=== PATIENT | female | born 1960 | race Caucasian/White ===

== ENCOUNTER 2016-11-19 11:15 | Outpatient (CLI) | payer MEDICARE, MEDICAID | END 2016-11-19 11:16 | disposition home or self-care (01) | DX: G47.33 Obstructive sleep apnea (adult) (pediatric) (principal) | CPT/HCPCS: 99214; G0463 ==

== ENCOUNTER 2016-12-10 19:01 | Outpatient (CLI) | payer MEDICARE, MEDICAID | END 2016-12-10 19:02 | disposition home or self-care (01) | DX: G47.33 Obstructive sleep apnea (adult) (pediatric) (principal); Z68.29 Body mass index [BMI] 29.0-29.9, adult ==

== ENCOUNTER 2016-12-25 13:00 | Outpatient (CLI) | payer MEDICARE, MEDICAID | END 2016-12-25 13:01 | disposition home or self-care (01) | DX: G47.33 Obstructive sleep apnea (adult) (pediatric) (principal) | CPT/HCPCS: 99213; G0463 ==

== ENCOUNTER 2017-01-10 12:00 | Outpatient (CLI) | payer MEDICARE, MEDICAID | END 2017-01-10 12:01 | disposition home or self-care (01) | DX: E11.9 Type 2 diabetes mellitus without complications (principal); E55.9 Vitamin D deficiency, unspecified; I10 Essential (primary) hypertension; E78.5 Hyperlipidemia, unspecified ==

== ENCOUNTER 2017-01-28 14:12 | Outpatient (CLI) | payer MEDICARE, MEDICAID | END 2017-01-28 14:13 | disposition home or self-care (01) | DX: G47.33 Obstructive sleep apnea (adult) (pediatric) (principal) | CPT/HCPCS: 99213; G0463 ==

== ENCOUNTER 2021-05-31 12:44 | Outpatient (CLI) | payer MEDICAID, MEDICARE ==
--- NOTE | 2021-05-31 14:20 | XRAY Report ---
PROCEDURE: Chest 2 View X-Ray INDICATIONS: Cough, shortness of breath TECHNIQUE: 2 view(s) of the chest. COMPARISON: 01/27/2016. FINDINGS: Surgical changes and devices: None. Lungs and pleura: No pleural effusions or pneumothorax. Lungs are clear. Mediastinum: Mediastinal contours are normal. Heart size is normal. Bones and chest wall: No suspicious bony abnormalities. Soft tissues appear unremarkable. IMPRESSION: No acute cardiopulmonary process demonstrated radiographically. Reviewed by: Shai Vines MD on 05/31/2021 2:19 PM PDT Approved by: Shai Vines MD on 05/31/2021 2:19 PM PDT Station ID: [id number]
== END 2021-05-31 12:45 | disposition home or self-care (01) ==
LOC: DI.N 12:44
PROVIDERS: ATTEND Physician Assistant
DX: R05 Cough (principal); R06.2 Wheezing; J44.9 Chronic obstructive pulmonary disease, unspecified

== ENCOUNTER 2021-10-10 20:11 | Emergency (ER) | payer MEDICARE ==
[2021-10-10 20:56] LABS: BASOPHILS # (AUTO) 0.1 10^3/uL (0.0-0.1); BASOPHILS % (AUTO) 0.7 %; EOSINOPHILS # (AUTO) 0.3 10^3/uL (0.0-0.7); EOSINOPHILS % (AUTO) 3.9 %; HGB - HEMOGLOBIN 13.6 g/dL (12.0-16.0); LYMPHOCYTES # (AUTO) 3.4 10^3/uL (1.5-3.5); LYMPHOCYTES % (AUTO) 40.4 %; MEAN CORPUSCULAR HEMOGLOBIN 30.7 pg (27.0-31.0); MEAN CORPUSCULAR VOLUME 90.3 fL (81.0-99.0); MEAN PLATELET VOLUME 10.5 fL (7.9-10.8); MONOCYTES # (AUTO) 0.5 10^3/uL (0.0-1.0); MONOCYTES % (AUTO) 5.4 %; NEUTROPHILS # (AUTO) 4.1 10^3/uL (1.5-6.6); NEUTROPHILS % (AUTO) 49.2 %; PLT - PLATELET COUNT 170 10^3/uL (130-450); RED BLOOD COUNT 4.43 10^6/uL (4.20-5.40); RED CELL DISTRIBUTION WIDTH 12.4 % (12.0-15.0); WHITE BLOOD COUNT 8.4 x10^3/uL (4.8-10.8)
--- NOTE | 2021-10-10 21:03 | XRAY Report ---
PROCEDURE: Chest 1 View X-Ray INDICATIONS: Chest pain TECHNIQUE: One view of the chest was acquired. COMPARISON: Chest x-ray 2 views, 05/31/2021. FINDINGS: Surgical changes and devices: None. Lungs and pleura: No pleural effusions or pneumothorax. Lungs are clear. Mediastinum: Mediastinal contours appear normal. Heart size is normal. Bones and chest wall: No suspicious bony lesions. Overlying soft tissues appear unremarkable. IMPRESSION: No acute cardiopulmonary disease. Reviewed by: Thalia Tejada MD on 10/10/2021 9:02 PM PST Approved by: Thalia Tejada MD on 10/10/2021 9:02 PM PST Station ID: [id number]
[2021-10-10 21:10] LABS: ALBUMIN 4.1 g/dL (3.2-5.5); ALBUMIN/GLOBULIN RATIO 1.5 (1.0-2.2); BILIRUBIN,TOTAL 0.7 mg/dL (0.2-1.0); CALCIUM 9.4 mg/dL (8.5-10.3); CREATININE 0.6 mg/dL (0.4-1.0); TOTAL PROTEIN 6.8 g/dL (6.7-8.2)
--- NOTE | 2021-10-10 21:11 | ED Physician Documentation ---
History of Present Illness - Stated complaint Stated Complaint: HIGH BLOOD PRESSURE - Chief complaint Chief Complaint: Cardiac - History obtained from History obtained from: Patient - History of Present Illness Timing: Today Pain level now: 2 (generalized headache) - Additonal information Additional information: c/o high blood pressures on BP cuff at home, highest reading was 210/103. She also notes increase frequency of her PACs. She takes atenolol 50mg QHS to decrease PAC frequency. Review of Systems Cardiac: reports: Palpitations. denies: Chest pain / pressure, Pedal edema Respiratory: reports: Reviewed and negative GI: reports: Reviewed and negative PD PAST MEDICAL HISTORY - Past Medical History Cardiovascular: High cholesterol, Arrhythmia Musculoskeletal: Fibromyalgia - Past Surgical History Past Surgical History: Yes General: Appendectomy /LIBRARY INFORMATION TECHNICIAN: Tubal ligation - Present Medications Home Medications: Ambulatory Orders Medication Instructions Recorded Confirmed Alprazolam [Xanax] 0.25 mg PO HS 05/16/13 10/11/21 Atorvastatin Calcium [Lipitor] 20 mg PO HS 05/16/13 10/11/21 Morphine Ir [Morphine] 0 mg PO BID 05/16/13 10/11/21 Omeprazole [PriLOSEC] 0 mg PO DAILY 05/16/13 10/11/21 Pregabalin [Lyrica] 300 mg PO HS 05/16/13 10/11/21 atenoloL [Atenolol] 50 mg PO DAILY 05/16/13 10/11/21 traMADol [Ultram] 0 mg PO BID 05/16/13 10/11/21 Hydrocodone/Acetaminophen [Vicodin 10 - 325 mg PO TID 04/03/14 10/11/21 5-300 mg Tablet] Amitriptyline [Elavil] 1 tab PO DAILY 11/19/15 10/11/21 metFORMIN [Glucophage] 500 mg PO BID 11/19/15 10/11/21 methocarbamoL [Methocarbamol] 1 tab PO TID 11/19/15 10/11/21 Duloxetine HCl [Cymbalta] 60 mg PO DAILY 08/16/21 10/11/21 Oxycodone HCl/Acetaminophen 2 tab PO Q4H PRN 08/16/21 10/11/21 [Percocet 5-325 mg Tablet] diazePAM [Valium] 0 mg PO TID PRN 08/16/21 10/11/21 predniSONE [Prednisone] 0 mg PO DAILY 08/16/21 10/11/21 lisinopriL [Lisinopril] 10 mg PO DAILY #30 tablet 10/10/21 10/11/21 - Allergies Allergies/Adverse Reactions: Allergies Allergy/AdvReac Type Severity Reaction Status Date / Time erythromycin base Allergy unknown Verified 10/10/21 20:20 [Erythromycin Base] ibuprofen [From Motrin] Allergy "my Verified 10/10/21 20:20 stomach won't take it" Sulfa (Sulfonamide Allergy unknown Verified 10/10/21 20:20 Antibiotics) - Social History Does the pt smoke?: Yes Smoking Status: Current every day smoker Does the pt drink ETOH?: No Does the pt have substance abuse?: No - Immunizations Immunizations: TDAP >10years/unknown - POLST Patient has POLST: No PD ED PE NORMAL - Vitals Vital signs reviewed: Yes - General General: Alert and oriented X 3, No acute distress, Well developed/nourished - HEENT HEENT: PERRL, EOMI - Cardiac Cardiac: RRR (occasional extra beat (correlates with PAC on monitor)), No murmur, No gallop, No rub - Respiratory Respiratory: No respiratory distress, Clear bilaterally - Abdomen Abdomen: Soft, Non tender - Neuro Neuro: Alert and oriented X 3 Results - Vitals Vitals: Oxygen O2 Source Room air - EKG (time done) No standard instances Rate: Rate (enter#) (71) Rhythm: NSR [place]: Normal Intervals: Normal GA QRS: Normal Ischemia: Normal ST segments - Labs Labs: Laboratory Tests 10/10/21 10/10/21 10/10/21 20:50 20:50 20:50 WBC 8.4 RBC 4.43 Hgb 13.6 Hct 40.0 MCV 90.3 MCH 30.7 MCHC 34.0 RDW 12.4 Plt Count 170 MPV 10.5 Neut # (Auto) 4.1 Lymph # (Auto) 3.4 [place] # (Auto) 0.5 Eos # (Auto) 0.3 Baso # (Auto) 0.1 Absolute Nucleated RBC 0.00 Nucleated RBC % 0.0 Sodium 140 Potassium 4.0 Chloride 104 Carbon Dioxide 24 Anion Gap 12.0 BUN 15 Creatinine 0.6 Estimated GFR (MDRD) 102 Glucose 91 Calcium 9.4 Total Bilirubin 0.7 AST 22 ALT 27 Alkaline Phosphatase 58 Troponin I High Sens 3.2 Total Protein 6.8 Albumin 4.1 Globulin 2.7 Albumin/Globulin Ratio 1.5 Lipase 37 PD MEDICAL DECISION MAKING - ED course Complexity details: reviewed results, re-evaluated patient, considered differential, d/w patient ED course: c/o high blood pressure without apparent cause (no missed medication doses, no memorable changes in diet nor stressors). She also c/o mild bifrontal headache. She denies chest pain but says she has some nondescript sensation (per patient) upper anterior midline chest. Cardiac-oriented workup is unremarkable, including CXR, EKG, and blood tests that included high-sensitivity troponin. She has moderately high blood pressure readings in ED. She is given 10mg PO lisinopril in ED and rx for same is transmitted to her pharmacy Departure - Departure Disposition: Home, Self Care Clinical Impression: Hypertension Qualifiers: Hypertension type: primary hypertension Qualified Code(s): I10 - Essential (primary) hypertension Condition: Good Instructions: ED Hypertension Conf Out Of Control Follow-Up: NARENDRA SCHULTE PA-C [Primary Care Provider] - Within 1 week Prescriptions: lisinopriL [Lisinopril] 10 mg PO DAILY #30 tablet Comments: A prescription for lisinopril has been electronically submitted to [facility] in [place] Discharge Date/Time: 10/10/21 21:56
[2021-10-10] MEDS ORDERED: lisinopriL 5 MG TABLET PO STA (21:46)
[2021-10-10 21:58] VITALS: BP 178/80
== END 2021-10-10 21:56 | disposition home or self-care (01) ==
LOC: ED 20:11
DX: I10 Essential (primary) hypertension (principal); R51.9 Headache, unspecified; I49.1 Atrial premature depolarization; F17.200 Nicotine dependence, unspecified, uncomplicated
CPT/HCPCS: 36415; 71045; 80053; 83690; 84484; 85025; 93005; 99284; A9270

== ENCOUNTER 2022-01-09 10:01 | Outpatient (CLI) | payer MEDICARE ==
--- NOTE | 2022-01-09 14:35 | Ultrasound Report ---
PROCEDURE: Abdomen Limited INDICATIONS: LIVER CIRRHOSIS TECHNIQUE: Real-time scanning was performed of the abdominal and retroperitoneal organs, with image documentatio n. COMPARISON: None. FINDINGS: Liver: Liver is is enlarged measuring 17.0 cm with steatosis. No focal lesion. Gallbladder: Gallbladder has been removed. Biliary ducts: Intrahepatic bile ducts are non-dilated. Extrahepatic bile duct caliber measures 9.1 mm. Normal is 6-7 mm or less in diameter, or 10 mm or less post-cholecystectomy. Pancreas: Visualized portions of the pancreas are sonographically normal. Kidneys: Right kidney measures 11.7 cm long. No hydronephrosis or nephrolithiasis. No solid masses . IMPRESSION: Hepatomegaly with steatosis. No focal lesion. Reviewed by: Alicja Peng MD on 01/09/2022 2:34 PM PDT Approved by: Alicja Peng MD on 01/09/2022 2:34 PM PDT Station ID: [id number]
== END 2022-01-09 10:02 | disposition home or self-care (01) ==
LOC: DI 10:01
PROVIDERS: ATTEND Physician Assistant
DX: K76.0 Fatty (change of) liver, not elsewhere classified (principal); R16.0 Hepatomegaly, not elsewhere classified

== ENCOUNTER 2022-03-13 11:21 | Outpatient (CLI) | payer MEDICARE ==
--- NOTE | 2022-03-14 13:40 | Mammography Report ---
BILATERAL DIGITAL SCREENING MAMMOGRAM 3D/2D: 03/13/2022 CLINICAL: Routine screening. Comparison is made to exams dated: 06/18/2016 mammogram, 03/19/2014 mammogram, and 09/22/2012 mammogra m - [facility]. There are scattered fibroglandular elements in both breasts. No significant masses, calcifications, or other findings are seen in either breast. There has been no significant interval change. IMPRESSION: NEGATIVE There is no mammographic evidence of malignancy. A 1 year screening mammogram is recommended. This exam was interpreted at Station ID: [id number]. NOTE: For mammograms, a report in lay terms will be sent to the patient. Approximately 15% of breast malignancies will not be visualized mammographically. In the management of a palpable breast mass, a negative mammogram must not discourage biopsy of a clinically suspicious lesion. Electronically Signed By: Adrianna welsh/deepthi:03/13/2022 17:52:08 ACR BI-RADS Category 1: Negative 3341F PARENCHYMAL PATTERN: (A) - The breast(s) demonstrate(s) scattered fibroglandular densities. BI-RADS CATEGORY: (1) - 1 RECOMMENDATION: (ANNUAL) - Recommend routine annual screening mammography. [id number] 1 year screening LATERALITY: (B)
== END 2022-03-13 11:22 | disposition home or self-care (01) ==
LOC: DI.N 11:21
PROVIDERS: ATTEND Physician Assistant
DX: Z12.31 Encounter for screening mammogram for malignant neoplasm of breast (principal)

== ENCOUNTER 2022-07-17 12:22 | Outpatient (CLI) | payer MEDICARE | END 2022-07-17 12:23 | disposition home or self-care (01) | LOC: SC 12:22 | PROVIDERS: ATTEND Internal Medicine Pulmonary Disease | DX: G47.33 Obstructive sleep apnea (adult) (pediatric) (principal); R09.02 Hypoxemia | CPT/HCPCS: G0399 ×2; 95806 ==

== ENCOUNTER 2022-08-02 15:43 | Outpatient (CLI) | payer MEDICARE ==
[2022-08-02 16:19] VITALS: BP 130/70
--- NOTE | 2022-08-02 16:19 | SLEEP CARE CONSULTATION ---
Information from patient questionnaire entered by Arielle Leal MA. I have reviewed and concur with the information entered by Arielle Leal MA. This document represents the service I personally performed and the decisions made by me, Dana Oconnor ARNP. History of Present Illness Service Date and Time: 08/02/2022 1543 Initial [place] Sleepiness Scale score: 14 (06/04/2022) Current [place] Sleepiness Scale score: 11 Additional HPI information: LUC FRAGA returns for follow up and results of the recently performed home sleep study. I explained the pathophysiology behind obstructive sleep apnea. We then spent quite a bit of time discussing different treatment options. For mild obstructive sleep apnea, surgery and oral appliance are alternatives to nasal CPAP therapy but in moderate or severe cases, nasal CPAP is the most effective and reliable treatment. I reviewed the impact of weight changes on sleep apnea and strongly recommended losing weight. After some discussion, the patient would like to have a referral to be evaluated for Inspire implant therapy. Patient has been on a CPAP in the past and states she could not find a mask that would seal and not leak into her eyes. She has not used her CPAP for a long time but she does have one that is probably 5 to 6 years old. Patient also asked about seeing different styles of masks and I showed those that we have in the office. She states she had to have a fullface mask. She did like the looks of the hybrid fullface masks. I had a Angelia [employer] example available in the office that I could fit her with, she felt it was comfortable and she will try this at home. Patient states she will set up and try to use the CPAP while she is going through the referral process for the Inspire implant therapy. Patient was cautioned about risks of drowsy driving until sleepiness symptoms resolve. Sleep Study - Results Prior sleep studies: Yes Polysomnography/Home Sleep Study results: Physician Impression: The quality of the study is good. The length of the study is adequate (> 240 minutes). Please also see the tabulated and graphic data. 1. Obstructive Sleep Apnea-Hypopnea (ICD-10 G47.33), moderate, with an AHI of 25.5/hr and nguyen SaO2 of 77%. During the study, the patient had 117 apneas (117 obstructive, 0 central, 0 mixed) and 69 hypopneas. The longest episode lasted 66.0 seconds. The patient did not sleep supine during this study. 2. Hypoxemia (ICD-10 R09.02), moderate, with the lowest oxygen saturation of 77 % and 15.6 minutes with SaO2 under 90%. Baseline oxygen saturation was normal (Average oxygen saturation was 92%). Allergies and Home Medications Drug allergies reviewed: Yes (as listed) Home medication list reviewed: Yes (no changes) Allergy and home medication list: Allergies erythromycin base [Erythromycin Base] Allergy (Verified 10/10/21 20:20) unknown ibuprofen [From Motrin] Allergy (Verified 10/10/21 20:20) "my stomach won't take it" Sulfa (Sulfonamide Antibiotics) Allergy (Verified 10/10/21 20:20) unknown Review of Systems Review of systems same as previous: Yes (no changes) Physical Exam Vital signs obtained and entered by: NICOLE AMOS Blood Pressure: 130/70 (left arm) Cuff size: regular Heart Rate: 64 O2 Saturation: 97 Height: 5 ft 4 in Weight: 174 lb 12.8 oz Body Mass Index: 29.9 BMI Classification: Overweight Impression and Plan 1. Obstructive Sleep Apnea-Hypopnea Syndrome, moderate, with lowest oxygen saturation of 77%. Obviously this is the cause of the patients symptoms of unrefreshed sleep, and excessive daytime sleepiness. Positive pressure therapy could benefit diabetes, fibromyalgia, anxiety and asthma. As mentioned above, the patient will restart using her CPAP at home with autoCPAP therapy pressure set at 10-15 cmH2O. Compliance guidelines also reviewed. A copy of compliance guidelines will be given for reference at check out. Patient also requesting a referral for evaluation for inspire implant therapy. A referral will be made and their office will be calling her to make that appointment. I would like to follow-up with her in about a month after she has been using her machine to see how she is doing and adjust pressure if needed. 2. Hypoxemia, moderate, with the lowest oxygen saturation of 77 % and 15.6 minutes with SaO2 under 90%. Her baseline oxygen saturation was normal with an average oxygen saturation of 92%. * Restart Nasal auto CPAP therapy, pressure to continue at 10-15 cm H2O. * Referral for ENT Inspire therapy evaluation * Attempt to lose weight. * Avoid alcohol consumption near bedtime. * The patient is again cautioned about driving until sleepiness completely resolves. * Return in one month for follow up. I will assess response to therapy and compliance at that time. Counseling Topics: Weight loss health impact Visit Type: In Office Time Spent with Patient (minutes): 28 Provider Statement: I spent 100% of the Face to Face Visit with the patient with greater than 50% spent counseling the patient and coordination of care.
== END 2022-08-02 15:44 | disposition home or self-care (01) ==
LOC: SC 15:43
PROVIDERS: ATTEND Nurse Practitioner Family
DX: G47.33 Obstructive sleep apnea (adult) (pediatric) (principal); R09.02 Hypoxemia; E66.3 Overweight; Z68.29 Body mass index [BMI] 29.0-29.9, adult
CPT/HCPCS: 99213; G0463; 99212

== ENCOUNTER 2022-08-08 16:35 | Outpatient (CLI) | payer MEDICARE ==
--- NOTE | 2022-08-09 14:25 | XRAY Report ---
PROCEDURE: Hand 3 View BILAT INDICATIONS: BILATERAL HAND PAIN, BILATERAL FOOT PAIN TECHNIQUE: 3 views of the hand(s) acquired. COMPARISON: Bilateral wrist radiographs also performed today. FINDINGS: Bones: No fractures or dislocations. Minimal interphalangeal joint space narrowing and small osteoph ytes. No suspicious bony lesions. Soft tissues: No suspicious soft tissue calcifications. IMPRESSION: Mild degenerative changes appreciated. Reviewed by: Ryan Aguilar MD on 08/09/2022 2:24 PM PDT Approved by: Ryan Aguilar MD on 08/09/2022 2:24 PM PDT Station ID: [id number]
--- NOTE | 2022-08-09 14:26 | XRAY Report ---
PROCEDURE: Wrist 4 View BILAT INDICATIONS: BILATERAL HAND PAIN, BILATERAL FOOT PAIN TECHNIQUE: 3 views of the wrist were acquired. COMPARISON: Same day bilateral hand radiographs. FINDINGS: Bones: No fractures or dislocations. Mild degenerative change. No suspicious bony lesions. Scaphoid view: Intact. Soft tissues: No suspicious soft tissue calcifications. IMPRESSION: Mild degenerative change appreciated. Reviewed by: Ryan Aguilar MD on 08/09/2022 2:25 PM PDT Approved by: Ryan Aguilar MD on 08/09/2022 2:25 PM PDT Station ID: [id number]
--- NOTE | 2022-08-09 16:52 | XRAY Report ---
PROCEDURE: Foot 3 View BILAT INDICATIONS: BILATERAL HAND PAIN, BILATERAL FOOT PAIN TECHNIQUE: 3 views of the foot were acquired. COMPARISON: None FINDINGS: Bones: No fractures or dislocations. Mild to moderate osteoarthritic changes are noted throughout bi lateral midfoot and forefoot joints with joint space narrowing, subchondral sclerosis and small yvonne nal osteophyte formation. No fracture or dislocation. No gross bony erosive changes. No suspicious [place] lesions. Soft tissues: No tibiotalar joint effusion. Achilles tendon appears normal. IMPRESSION: [id number] bilateral midfoot and forefoot joint osteoarthritis. No fracture or dislocation. No bony erosive changes or gross soft tissue abnormalities. Reviewed by: Lewis Fleming MD on 08/09/2022 4:50 PM PDT Approved by: Lewis Fleming MD on 08/09/2022 4:50 PM PDT Station ID: [id number]
== END 2022-08-08 16:36 | disposition home or self-care (01) ==
LOC: DI.N 16:35
PROVIDERS: ATTEND Physician Assistant
DX: M19.071 Primary osteoarthritis, right ankle and foot (principal); M19.072 Primary osteoarthritis, left ankle and foot; M19.041 Primary osteoarthritis, right hand; M19.042 Primary osteoarthritis, left hand; M19.031 Primary osteoarthritis, right wrist; M19.032 Primary osteoarthritis, left wrist

== ENCOUNTER 2022-08-18 16:43 | Outpatient (CLI) | payer MEDICARE | END 2022-08-18 23:59 | disposition home or self-care (01) | LOC: LAB.N 16:43 | PROVIDERS: ATTEND Registered Nurse | DX: R06.2 Wheezing (principal) | CPT/HCPCS: 87275; 87276 ==

== ENCOUNTER 2022-08-21 12:26 | Outpatient (CLI) | payer MEDICARE ==
--- NOTE | 2022-08-21 14:38 | XRAY Report ---
PROCEDURE: Chest 2 View X-Ray INDICATIONS: WHEEZING, PNEUMONIA TECHNIQUE: 2 views of the chest were obtained. COMPARISON: Chest x-ray 08/10/2021 FINDINGS: Cardiac mediastinal silhouette is normal in size and contour. No effusions, consolidations or pneumot horax. Osseous and soft tissue structures are unremarkable. IMPRESSION: No acute pulmonary process. Reviewed by: Alicja Peng MD on 08/21/2022 2:37 PM PDT Approved by: Alicja Peng MD on 08/21/2022 2:37 PM PDT Station ID: [id number]
== END 2022-08-21 12:27 | disposition home or self-care (01) ==
LOC: DI.N 12:26
PROVIDERS: ATTEND Registered Nurse
DX: J18.9 Pneumonia, unspecified organism (principal); R61 Generalized hyperhidrosis; R06.2 Wheezing; F17.210 Nicotine dependence, cigarettes, uncomplicated

== ENCOUNTER 2022-09-13 15:47 | Outpatient (CLI) | payer MEDICARE ==
[2022-09-13 16:26] VITALS: BP 110/62
--- NOTE | 2022-09-13 16:26 | SLEEP CARE CONSULTATION ---
Information from patient questionnaire entered by Minda Jonas. I have reviewed and concur with the information entered by Minda Jonas. This document represents the service I personally performed and the decisions made by me, Dana Oconnor ARNP. History of Present Illness Service Date and Time: 09/13/2022 1547 Previous diagnosis: Moderate, Obstructive Sleep Apnea-Hypopnea Syndrome AHI: 25.5 (in 2021) Reason for follow up: one month (F/U) Equipment type: CPAP Mask style: Full face Mask brand: Respironics (Dreamwear) Backup mask available: Yes (other mask) Prior sleep studies: Yes HPI additional information: LUC FRAGA was diagnosed to have moderate, AHI 25.5, obstructive sleep apnea- hypopnea syndrome and returned today for CPAP therapy one month follow-up. Sleep Study - Results Prior sleep studies: Yes CPAP Compliance Data Compliance data discussion: She has not used her CPAP due to mask leaking into face. She liked the feel of the Dreamwear full face mask but after 30 minutes she could not stand the air leaking. Subjective Missed days of use due to: reports: mask issues Patient concerns: reports: mask discomfort, air blowing in eyes, mask leak noise. denies: aerophagia, condensation in mask/hose, nasal congestion, dry mouth, nose, throat, epistaxis Current pressure setting perceived as: comfortable Initial [place] Sleepiness Scale score: 14 (06/04/2022) Current [place] Sleepiness Scale score: 13 (09/13/2022) Allergies and Home Medications Drug allergies reviewed: Yes (as listed in EMR) Home medication list reviewed: Yes (no changes) Review of Systems Review of systems same as previous: Yes (no changes) Physical Exam Vital signs obtained and entered by: MINDA Cummings MA Blood Pressure: 110/62 (LEFT ARM) Cuff size: regular Heart Rate: 64 O2 Saturation: 98 Height: 5 ft 4 in Weight: 173 lb 12.8 oz Body Mass Index: 29.8 BMI Classification: Overweight Impression and Plan 1. Obstructive Sleep Apnea-Hypopnea Syndrome, moderate, with poor treatment compliance and unknown apnea control. Patient states that she tried the full face mask (Dreamwear) that she was given here at the clinic but after 30 minutes she was not able to tolerate the air blowing in her face. She has not used her CPAP since that time. After some discussion, I fitted her with a [employer] Dreamwear nasal cushion mask and advised that she use mouth/sleep strips to keep mouth closed. She has tried a chin strap in the past but this did not work for her. She stated that she is willing to try this combination. If this does not work may try the Sleep Chao cloth mask. She will make a follow up in 1-2 months to see how she is doing. Patient's apnea severity and rationale for treatment to reduce apnea, improve sleep quality and reduce cardiovascular and cerebrovascular events was reviewed. I also reviewed the benefit of consistent device use of CPAP for diabetes, anxiety, fibromyalgia and asthma. 2. Overweight unspecified. Currently patients BMI is 29.8. Obesity increases the risk of apnea, CPAP pressure requirements and overall health risks especially cardiovascular and diabetes. Thus patient is advised to lose weight. * Continue auto CPAP pressure at 10-15 cmH2O * Angelia Dreamwear nasal pillows sample given to try with mouth strips to keep mouth closed * Notify me if snoring with mask or feeling that the pressure is too much or too little * Attempt to lose weight * Call this office if any problems using CPAP * Return for follow up in 1-2 months, or sooner if concerns arise Mask provided: Yes Counseling Topics: Weight loss health impact Visit Type: In Office Time Spent with Patient (minutes): 24 Provider Statement: I spent 100% of the Face to Face Visit with the patient with greater than 50% spent counseling the patient and coordination of care.
== END 2022-09-13 15:48 | disposition home or self-care (01) ==
LOC: SC 15:47
PROVIDERS: ATTEND Nurse Practitioner Family
DX: G47.33 Obstructive sleep apnea (adult) (pediatric) (principal); E66.3 Overweight; Z68.29 Body mass index [BMI] 29.0-29.9, adult
CPT/HCPCS: 99213; G0463; 99212

== ENCOUNTER 2023-01-22 13:56 | Outpatient (CLI) | payer MEDICARE ==
--- NOTE | 2023-01-22 14:33 | XRAY Report ---
PROCEDURE: Chest 2 View X-Ray INDICATIONS: COUGH; NICTOINE DEPENDENCE TECHNIQUE: 2 views of the chest were acquired. COMPARISON: Chest xray 08/21/2022 FINDINGS: Surgical changes and devices: None. Lungs and pleura: No pleural effusions or pneumothorax. Lungs are clear. Mediastinum: Mediastinal contours are normal. Heart size is normal. Bones and chest wall: No suspicious bony abnormalities. Soft tissues appear unremarkable. IMPRESSION: No acute pulmonary process. Reviewed by: Alicja Peng MD on 01/22/2023 2:32 PM PDT Approved by: Alicja Peng MD on 01/22/2023 2:32 PM PDT Station ID: [id number]
== END 2023-01-22 13:57 | disposition home or self-care (01) ==
LOC: DI 13:56
PROVIDERS: ATTEND Physician Assistant
DX: R05.9 Cough, unspecified (principal); F17.200 Nicotine dependence, unspecified, uncomplicated

== ENCOUNTER 2023-02-06 13:26 | Outpatient (CLI) | payer MEDICARE ==
[2023-02-06] MEDS ORDERED: ALBUTEROL 1 PUFF INH STA (17:20)
== END 2023-02-06 13:27 | disposition home or self-care (01) ==
LOC: RT 13:26
PROVIDERS: ATTEND Physician Assistant
DX: R05.9 Cough, unspecified (principal); R06.02 Shortness of breath; Z72.0 Tobacco use
CPT/HCPCS: 94060; 94729

== ENCOUNTER 2023-12-06 15:36 | Outpatient (CLI) | payer MEDICARE ==
--- NOTE | 2023-12-06 18:42 | XRAY Report ---
PROCEDURE: Hip w/Pelvis 2-3V RT INDICATIONS: RIGHT HIP PAIN TECHNIQUE: 2 views of the hip were acquired. COMPARISON: None. FINDINGS: Bones: No fractures or dislocations. Mild bilateral hip joint space narrowing and juxta-articular os teophytosis. Mild degenerative changes of the lower lumbar spine. No suspicious bony lesions. Soft tissues: No suspicious soft tissue calcifications or masses. IMPRESSION: 1.No acute bony abnormality. If there is high clinical suspicion for a radiographically occult fractu re, consider cross-sectional imaging for further evaluation. 2.Mild bilateral hip osteoarthritis. Reviewed by: Kimani Ross MD on 12/06/2023 6:40 PM PST Approved by: Kimani Ross MD on 12/06/2023 6:40 PM PST Station ID: [id number]
== END 2023-12-06 15:37 | disposition home or self-care (01) ==
LOC: DI.N 15:36
PROVIDERS: ATTEND Acupuncturist
DX: M16.0 Bilateral primary osteoarthritis of hip (principal)

== ENCOUNTER 2024-02-05 12:46 | Outpatient (CLI) | payer MEDICARE ==
--- NOTE | 2024-02-05 15:19 | CT Report ---
PROCEDURE: Lung Cancer Screen INDICATIONS: SMOKER TECHNIQUE: A CT scan of the chest was performed. Intravenous contrast media was not administered. Images were re corded and evaluated at appropriate window settings. Reformats: axial MIP of the chest, coronal and s agittal. For radiation dose reduction, the following was used: automated exposure control, adjustment of mA and/or kV according to patient size. COMPARISON: None. FINDINGS: Image quality: Excellent. Prior cancer history: Unknown Lungs and pleura: Nodules are as follows: Left lung apex 0.6 cm solid nodule, 4/21. Right lower lobe medial subpleural 2 mm solid nodule, 4/60. Scattered punctate calcifications bilaterally. No suspicious groundglass opacities or dense consolida tions. No pleural effusions. Mediastinum: Heart size is normal. Moderate coronary artery calcification. No pericardial effusion. N o large vessel abnormality. No mediastinal adenopathy by size criteria. Small hiatal hernia. Otherwi se normal esophagus. Chest wall and lower neck: No chest wall mass. Normal thyroid. No axillary or supraclavicular adenopa thy by size. Bones: No aggressive osseous abnormality. Upper Abdomen: Unremarkable. IMPRESSION: Lung RAD: 3 - Probably Benign. Recommendation: Continue screening in 6 Months with LDCT Non-Lung Significant Findings: Coronary Arterial Calcification - Moderate or Severe. Reviewed by: Heidi Schmidt MD on 02/05/2024 3:18 PM PDT Approved by: Heidi Schmidt MD on 02/05/2024 3:18 PM PDT Station ID: [id number]
== END 2024-02-05 12:47 | disposition home or self-care (01) ==
LOC: DI 12:46
PROVIDERS: ATTEND Internal Medicine
DX: Z12.2 Encounter for screening for malignant neoplasm of respiratory organs (principal); I25.10 Atherosclerotic heart disease of native coronary artery without angina pectoris; F17.210 Nicotine dependence, cigarettes, uncomplicated

== ENCOUNTER 2024-02-29 12:53 | Outpatient (CLI) | payer MEDICARE ==
--- NOTE | 2024-03-01 07:09 | XRAY Report ---
PROCEDURE: Knee 3V LT INDICATIONS: L KNEE PAIN TECHNIQUE: 3 views of the knee(s) were acquired. COMPARISON: None. FINDINGS: Bones: Mild degenerative changes. No acute displaced fracture or dislocation. Patellar enthesopathy i s present. Soft tissues: Vascular calcifications. Possible small joint fluid. IMPRESSION: There are mild degenerative changes. Patellar enthesopathy. Possible small joint fluid. If there is h igh concern for further derangement, consider MRI evaluation. Reviewed by: Gomez Ocasio MD on 03/01/2024 7:08 AM PDT Approved by: Gomez Ocasio MD on 03/01/2024 7:08 AM PDT Station ID: [id number]
== END 2024-02-29 12:54 | disposition home or self-care (01) ==
LOC: DI 12:53
PROVIDERS: ATTEND Internal Medicine
DX: M17.12 Unilateral primary osteoarthritis, left knee (principal)